=== PATIENT | male | born 1980 | race Two or more races ===

== ENCOUNTER 2016-05-10 07:15 | Emergency (ER) | payer BC ==
[2016-05-10] MEDS ORDERED: SULFACETAMIDE SODIUM 15ML BTL OPTH ONE (07:34)
--- NOTE | 2016-05-10 07:34 | Emergency Department Record ---
History of Present Illness - General Chief complaint: Eye Problem Stated complaint: SOMETHING IN EYE Time Seen by Provider: 05/10/16 07:29 Source: Patient Mode of Arrival: Ambulatory Limitations: No limitations - History of Present Illness Initial comments: 36 yo male presents with right eye pain and redness. He woke up with the symptoms. He is concerned about a scratch or foreign body. He does not wear contacts or glasses. No history of prior eye disease. He works around metal and dust but does not remember any specific injury. chief complaint: Eye pain, Eye redness -: Awoke with symptoms Onset Description: Sudden, Awoke with symptoms Location: Right eye Eye Symptoms: Decreased vision, Foreign body sensation, Pain, Redness Severity: Severe Severity scale (1-10): 9 Consistency: Constant Associated Symptoms: None Treatments Prior to Arrival: None - Related Data Home Medications Medication Instructions Recorded Confirmed Last Taken No Home Med [NO HOME MEDS] 05/10/16 05/10/16 Unknown Allergies Allergy/AdvReac Type Severity Reaction Status Date / Time No Known Drug Allergies Allergy Verified 05/10/16 07:22 Travel Screening - Travel/Exposure Within Last 30 Days Have you traveled within the last 30 days?: No Review of Systems Constitutional: Denies: Chills, Fever, Malaise, Weakness Eyes: Reports: Eye discharge (clear), Eye pain, Photophobia ENT: Denies: Congestion, Throat pain Respiratory: Denies: Cough Cardiovascular: Denies: Chest pain Endocrine: Denies: Fatigue Gastrointestinal: Denies: Abdominal pain, Diarrhea, Nausea, Vomiting Genitourinary: Denies: Dysuria, Frequency Musculoskeletal: Denies: Arthralgia, Back pain, Myalgia Skin: Denies: Bruising, Change in color, Rash Neurological: Denies: Headache Psychiatric: Denies: Anxiety Hematological/Lymphatic: Denies: Blood Clots, Easy bleeding, Easy bruising, Swollen glands Past Medical History - SOCIAL HISTORY Smoking Status: Current every day smoker Alcohol Use: None Drug Use: None - RESPIRATORY Hx Respiratory Disorders: No - CARDIOVASCULAR Hx Cardio Disorders: No - NEURO Hx Neuro Disorders: No - GI Hx GI Disorders: No - Hx Genitourinary Disorders: No - ENDOCRINE Hx Endocrine Disorders: No - MUSCULOSKELETAL Hx Musculoskeletal Disorders: No - PSYCH Hx Psych Problems: No - HEMATOLOGY/ONCOLOGY Hx Hematology/Oncology Disorders: No Family Medical History Any Significant Family History?: No Physical Exam - General General Appearance: Alert, Oriented x3, Cooperative, No acute distress Limitations: No limitations - Head Head exam: Normal inspection - Eye Eye exam: PERRL, Conjunctival injection, EOMI. negative: Normal appearance, Nystagmus, Periorbital swelling, Periorbital tenderness, Scleral icterus Pupils: Normal accommodation. negative: Irregular, Unequal Image of Eyes: 1 - stain uptake consistent with abrasion, no ulcer or dentrite, clear AC, no exudates - ENT ENT exam: Normal exam Ear exam: Normal external inspection Nasal Exam: Normal inspection - Neck Neck exam: Normal inspection - Respiratory Respiratory exam: negative: Accessory muscle use, Prolonged expiratory - Rectal Rectal exam: Deferred - exam: Deferred - Neurological Neurological exam: Alert, CN II-XII intact, Oriented X3. negative: Motor sensory deficit - Psychiatric Psychiatric exam: Normal affect, Normal mood - Skin Skin exam: Dry, Intact, Normal color, Warm Course Vital Signs 05/10/16 07:16 Temperature 97.8 F Pulse Rate 69 Respiratory 18 Rate Blood Pressure 146/90 Pulse Ox 99 - Reevaluation(s) Reevaluation #1: The patient was seen and examined He got complete relief with Alcaine topical drops He had an area of uptake of stain near the central area of the pupil No dendrites or ulcers No FB seen, No rust seen He was examined with the slit lamp No FB seen. The AC was clear 05/10/16 07:30 Reevaluation #2: The patient was given topical antibiotics drops for home I recommended follow up with ophthalmology given the location of the corneal abrasion A referral number was provided. Vision is 20/25 bilateral. 05/10/16 07:51 Disposition Disposition: Discharge Clinical Impression: Corneal abrasion Qualifiers: Encounter type: initial encounter Laterality: right Qualified Code(s): S05.01XA - Injury of conjunctiva and corneal abrasion without foreign body, right eye, initial encounter Disposition: Home, Self-Care Condition: (1) Good Instructions: Corneal Abrasion (ED) Additional Instructions: Call the number provided for a follow up with the revenue research analyst Return if worse or any new concerns Avoid light today as this will cause sensitivity Use the antibiotic drops every 4 hours Referrals: KATIE PERDOMO [MEDICAL DOCTOR] - Forms: Patient Portal Access Time of Disposition: 07:34
[2016-05-10] MEDS ORDERED: PROPARACAINE HCL OPTH 15ML BTL OPTH ONE (07:35)
== END 2016-05-10 07:52 | disposition home or self-care (01) ==
LOC: ER 07:15
DX: S05.01XA Injury of conjunctiva and corneal abrasion without foreign body, right eye, initial encounter (principal); X58.XXXA Exposure to other specified factors, initial encounter
CPT/HCPCS: 99283